=== PATIENT | female | born 1995 | race Caucasian/White ===

== ENCOUNTER 2019-12-17 00:28 | Emergency (ER) | payer OTHER ==
[2019-12-17 00:32] VITALS: BP 102/60
[2019-12-17] MEDS ORDERED: DIPHENHYDRAMINE 50 MG CAPSULE ONE (00:45)
[2019-12-17] MEDS ORDERED: LORazepam 1MG TABLET ONE (00:45)
--- NOTE | 2019-12-17 00:53 | NUR ---
Pt ambulated to bed from ems stretcher, in no obvious distress. Pt states she has been increasingly anxious since school started back this week, developed cold sores and is concerned about reoccurrence of her eating disorder. Pt denies SI or HI, feels safe at home and states she "just wants to be able to get some sleep."
--- NOTE | 2019-12-17 00:57 | NUR ---
report of pt from chris Rivera and assuming care of pt at this time. pt ambulates to restroom with steady gait.
--- NOTE | 2019-12-17 00:57 | NUR ---
KESHA RN, REPORT GIVEN TO RUPERTO
[2019-12-17] MEDS ORDERED: LORazepam 1MG TABLET PO ONE (01:00)
[2019-12-17] MEDS ORDERED: DIPHENHYDRAMINE 25 MG CAPSULE PO ONE (01:00)
[2019-12-17] MEDS ORDERED: PLEASE ENTER ALLERGIES MC SCH (01:00)
--- NOTE | 2019-12-17 01:38 | NUR ---
pt d/c with d/c summary. all questions answered. pt provided taxi voucher for safe d/c home. pt denies any other needs pertaining to this visit. pt ambulates to registration desk with steady gait for d/c home. pt vss upon d/c.
== END 2019-12-17 01:43 | disposition home or self-care (01) ==
LOC: ED 01:00
DX: F41.1 Generalized anxiety disorder (principal)
CPT/HCPCS: 99283; Q0163